=== PATIENT | female | born 1965 | race Caucasian/White ===

== ENCOUNTER 2018-02-05 19:09 | Emergency (ER) | payer BC ==
[2018-02-05] MEDS ORDERED: Adacel (T-DAP) 0.5 ML VIAL ONE (19:47)
[2018-02-05] MEDS ORDERED: Lidocaine 1% w/Epinephrine 1:100K 20 ML VIAL ONE (19:47)
--- NOTE | 2018-02-05 20:02 | RAD ---
FOUR VIEWS LEFT ELBOW 02/05/18 COMPARISON: None. HISTORY: Trauma with left elbow pain after landing on the left side of her body after falling off a ladder. FINDINGS: Four views of the left elbow shows no evidence of acute fracture or dislocation. No elbow effusion is seen. No degenerative changes are present. There is a laceration on the posterior aspect of the elbo w. IMPRESSION: No evidence of acute osseous abnormality. POS: [facility]
[2018-02-05] MEDS ORDERED: Bacitracin Zinc 1 Packet ONE (22:04)
== END 2018-02-05 22:16 | disposition home or self-care (01) ==
LOC: ERS 19:09
DX: S51.812A Laceration without foreign body of left forearm, initial encounter (principal); S51.012A Laceration without foreign body of left elbow, initial encounter; W11.XXXA Fall on and from ladder, initial encounter
CPT/HCPCS: 12034; 90471; 90715; J2001